=== PATIENT | female | born 1960 | race Caucasian/White ===

== ENCOUNTER 2021-10-12 01:27 | Emergency (ER) | payer OTHER, SELFPAY ==
[2021-10-12 01:32] VITALS: BP 146/81; PULSE 77; RESP 22; TEMP 36.7; O2SAT 98; BMI 29.4
[2021-10-12 01:37] VITALS: O2SAT 99
--- NOTE | 2021-10-12 01:59 | RAD_ITS ---
STUDY: X-RAY CHEST REASON FOR EXAM: Female, 60 years old. cough TECHNIQUE: 1 view COMPARISON: 01/19/2015 FINDINGS: Cardiomediastinal silhouette is unremarkable. Costophrenic angles are sharp. Lungs are clear. The trachea is midline. There is no pneumothorax. Multilevel thoracic spondylosis and mild dextroscoliosis noted. RAD/Chest 1 View (Portable) IMPRESSION: No acute cardiopulmonary process. Electronically Signed: Thad Dunne MD at 2:54 EDT ,
--- NOTE | 2021-10-12 02:01 | EDS_ITS ---
HPI HPI - URI History of Present Illness Chief Complaint: Cough Detail of Chief Complaint: 1 week. Informant: patient Onset/Context/Timing Onset: Days Context: Gradual Onset Timing: Continuous Current Severity: Mild Maximum Severity: Mild Associated Symptoms Associated Symptoms: Positive for Nasal Congestion, Shortness of Breath and Nonproductive cough; Negative for Diarrhea, Chest Pain, Hemoptysis or Productive Cough Narrative Narrative: 60-year-old female history of asthma. Previously vaccinated with the Pfizer vaccine for COVID. States she has had a weeklong history of a cough. Called her primary care physician's office who called her in a Z-Bahman today. She just started it on Thursday. She is not had any COVID testing. She has asthma and states she has been wheezing but when she gets these coughing jags she feels short of breath. She has been using a cough suppressant but feels its not working. She denies any fever. No hemoptysis. No chest pain. Prior similar symptoms: Yes Recent Illness/Hospitalization: No ROS ROS ED ROS Narrative Cough. Laryngitis. Review of Systems ROS Unobtainable: Denies due to encephalopathy Constitutional Constitutional ED: Denies chills or fever(s) Eyes Eyes: Denies blurry vision ENT ENT ED: Denies ear pain Cardiovascular Cardiovascular: Denies chest pain Respiratory/Chest Respiratory/Chest: Reports cough and dyspnea Gastrointestinal Gastrointestinal: Denies abdominal pain Genitourinary Genitourinary ED: Denies dysuria or hematuria Musculoskeletal Musculoskeletal: Denies arthralgias Integumentary Denies abscess Neurologic Neurologic: Denies headache(s) Psychiatric Psychiatric: Denies anxiety Endocrine Endocrinology: Denies cold intolerance Hematologic/Lymphatic Hematologic/Lymphatic: Denies easy bleeding or easy bruising Allergic/Immunologic Allergic/Immunologic ED: Denies mouth swelling or tongue swelling [facility] Medical History Asthma Home Medications venlafaxine 75 mg tablet 75 mg PO DAILY 01/19/15 [History Last Taken Unknown] albuterol sulfate 2.5 mg/3 mL (0.083 %) solution for nebulization 2.5 mg inhalation Q20M 01/31/17 [History Last Taken Unknown] Allergy/AdvReac Type Severity Reaction Status Date / Time cortisone Allergy Other Verified 10/12/21 01:31 NSAIDS (Non-Steroidal Allergy Hives Verified 10/12/21 01:31 Anti-Inflamma Penicillins Allergy Swelling Verified 10/12/21 01:31 Tetanus Vaccines and Toxoid Allergy Pain in Verified 10/12/21 01:31 [Tetanus Vaccines & Toxoid] joints Surgical History H/O: hysterectomy Hx of cholecystectomy Social History Smoking Status: Never smoker alcohol intake: current alcohol intake frequency: holidays/special occasions only EXAM Physical Exam Narrative Exam Narrative: Well-appearing 60-year-old female. No acute distress. Vital signs are stable afebrile. Pulse ox on room air 98% no hypoxia. H EENT exam unremarkable. Posterior pharynx normal. Moist mucous membranes. Neck nontender. No JVD no lymphadenopathy. Lungs clear to auscultation. Dry nonproductive cough. Heart regular rhythm rate about 75 no murmur. Chest wall nontender. Abdomen soft nontender. Moving all 4 extremities. Calves are nontender without edema or cords. Neurologically she is awake and alert with no focal motor deficits. Please add she had clear rhinorrhea. Const Vital Signs: 10/12/21 01:32 10/12/21 01:37 Temperature 98.1 F Temperature Source Oral Pulse Rate 77 Respiratory Rate 22 H Respiratory Effort Normal Respiratory Depth Normal Respiratory Pattern Normal Blood Pressure 146/81 H Blood Pressure Mean 102 Pulse Ox 98 Oxygen Delivery Method Room Air Room Air Positive well nourished and well developed; Negative for obese, cachectic or contractures General Appearance ED: well developed and NAD; Negative for cachectic, contractures, cyanotic, diaphoretic or pallor Nutritional Appearance: Negative for cachectic or obese HEENT Reports moist mucous membranes; Denies dry mucous membranes normocephalic; Negative for atraumatic or scalp tenderness Face and Sinus: Negative for sinus tenderness Mouth ED: No dry mucous membranes Mouth: No dry mucous membranes Throat: posterior oropharynx normal; Negative for tonsils abnormal Eyes PERRL and EOMs intact bilaterally General Eye ED: Negative for pale conjunctiva or scleral icterus Neck no lymphadenopathy, supple, no meningeal signs and no JVD General: Negative for anterior neck swelling or lymphadenopathy Resp normal respiratory effort and clear to auscultation bilaterally Effort and Inspection: Negative for retractions Auscultation: Negative for rales, rhonchi or wheezes Cardio S1 normal heart sound, S2 normal heart sound and no murmurs Rate: Negative for regular rate, bradycardia, tachycardic or other Rhythm: Negative for regular rhythm or abnormal rhythm GI non-tender, non-distended and no masses Inspection: Negative for abdominal distention Auscultation: normoactive bowel sounds Palpation: soft; Negative for tender or guarding Percussion: Negative for other Back/Spine no CVA tenderness Extremity normal to inspection and full ROM General Extremety ED: Negative for cyanosis or tenderness General Extremity: Negative for cyanosis Neuro oriented x3 and CN's II-XII intact bilaterally Sensorium / Orientation: alert, oriented to person, oriented to place and oriented to time; Negative for orientation impaired, lethargic or stuporous Motor Exam: strength 5/5 throughout Psych mental status grossly normal Appearance: Negative for other Attitude: No agitated Mood & Affect: Negative for depressed or anxious Skin General Skin Exam: Negative for jaundice or pallor Lesions: no lesions Rashes: no rashes Trauma: Negative for abrasion MDM MDM MDM Narrative Medical decision making narrative: 60-year-old female with 1 week history of cough started on Z-Bahman on Thursday by her primary care physician. Clinically looks well. Chest x-ray and COVID test will be obtained. She will be given a dose of cough medication with codeine. This very well may be a viral syndrome. Rule out pneumonia versus COVID. She does not need any lab work besides a COVID test. Repeat exam patient is doing well at 3:15 AM patient feeling better. Cough somewhat improved with the costs medication we gave her. We went over her test results. She is comfortable being discharged home. Follow-up with her doctor. Lab Data Attestation: I reviewed the patient's lab results. Lab results narrative: Rapid COVID antigen test is negative. Radiography Diagnostic Testing: Clinical Impression(s) from Imaging Studies Chest X-Ray 10/12/21 01:59 IMPRESSION: No acute cardiopulmonary process. Electronically Signed: Thad Dunne MD at 2:54 EDT Reading Location ID and State: [facility] / [place] Tel , Service support , Chest x-ray, portable, single view interpreted by myself shows no acute abnormality. Normal cardiac silhouette mediastinum. Discharge Plan Triage Chief Complaint: Cough ED Provider: Alli Weiss Dx/Rx/DC Orders Clinical Impression: Bronchitis Instructions: ED Bronchitis, No Antibiotic (Adult) Prescriptions: No Action albuterol sulfate 2.5 mg /3 mL (0.083 %) solution for nebulization 2.5 mg INHALATION Q20M venlafaxine 75 MG tablet 75 mg PO DAILY Primary Care Provider: Zofia Escamilla Referrals: Zofia Escamilla, [Primary Care Provider] - 1 Week if not improving Activity Restrictions/Additional Instructions: Plenty of fluids and rest. Hycodan cough syrup for the cough you can pick it up at your pharmacy later today. This is probably viral and will probably get better on its own if you want to you can still finish the Zithromax but it may not be necessary. Follow-up with your doctor if not improving. Disposition Disposition: Home, Self Care
[2021-10-12] MEDS: guaiFENesin/Codeine 5 ML UDC 10 ML PO (02:37)
[2021-10-12 03:26] VITALS: RESP 18
== END 2021-10-12 03:27 | disposition home or self-care (01) ==
PROVIDERS: Emergency Provider Emergency Medicine; PCP Internal Medicine; Visit Provider Emergency Medicine
DX: J40 Bronchitis, not specified as acute or chronic (principal); R09.81 Nasal congestion; J45.909 Unspecified asthma, uncomplicated; Z20.822 Contact with and (suspected) exposure to COVID-19
CPT/HCPCS: 71045; 87811; 99282